=== PATIENT | female | born 1950 | race Caucasian/White ===

== ENCOUNTER 2017-03-08 18:36 | Emergency (ER) | payer OTHER ==
[~2017-03-08] VITALS: Ht 175.3 cm; Wt 63.5 kg
--- NOTE | ~2017-03-08 | EKG ---
[address] [place] [address] ELECTROCARDIOGRAM REPORT Name: MONTY ROBERTS YANICK Room [facility]: [facility] [place] [id number] Admission: 03/08/17 Attend Phys: Discharge: 03/08/17 Date of : 52 Report #: [id number] THIS REPORT FOR: //name// [facility] ED Test Date: 2017-03-08 Test Time: 18:40:52 Pat Name: MONTY ROBERTS Department: Room: Gender: F Wedding Consultant: SUHA : 1950 Requested By: Bel Phillip Order Number: [id number] MD: Rene Mcpherson Measurements Intervals [place] Rate: 66 P: 78 WI: 158 QRS: 71 QRSD: 87 T: 65 QT: 420 QTc: 441 Interpretive Statements Sinus rhythm No significant abnormality No previous ECG available for comparison Electronically Signed On 03-09-2017 8:52:25 CDT by Rene Mcpherson [email or web address] <ELECTRONICALLY SIGNED> By: Rene Mcpherson MD, [facility] 03/09/17 [id number] 1840 1840 Rene Mcpherson MD, FACC /EPI
[2017-03-08] MEDS ORDERED: LEVOTHYROXIN0.088 MG PO (18:46)
[2017-03-08] MEDS ORDERED: FOSAMAX 70 MG T70 MG PO (18:46)
[2017-03-08] MEDS ORDERED: ALDACTONE50 MG PO (18:46)
[2017-03-08] MEDS ORDERED: VITAMIN D 5050000 I1 PO (18:47)
[2017-03-08] MEDS ORDERED: BIOTIN5000 MCG PO (18:48)
[2017-03-08] MEDS ORDERED: ASPIR 8181 MG PO (18:48)
[2017-03-08] MEDS ORDERED: TUMS PO (18:48)
[2017-03-08] MEDS ORDERED: VITAMINC500 PO (18:48)
[2017-03-08] MEDS ORDERED: FISH OIL 1,001000 M2 PO (18:49)
[2017-03-08] MEDS ORDERED: SYSTANE 0.3-0.1 EACH OP (18:49)
[2017-03-08] MEDS ORDERED: MELATONIN5 M1 PO (18:49)
[2017-03-08 18:57] LABS: HEMATOCRIT 39.6 % (37.0-47.0); HEMOGLOBIN 13.6 gm/dL (12.0-15.0); MCH 33.1 pg (26.0-34.0); MCHC 34.4 g/dL (28.0-37.0); MCV 96.1 fL (80.0-100.0); PLATELET COUNT 321 thou/uL (150-400); RBC 4.12 mil/uL (4.20-5.00); RDW 13.4 % (10.5-14.5); WBC 8.4 thou/uL (4.0-11.0)
[2017-03-08 19:00] LABS: MANUAL DIFF YES
[2017-03-08 19:06] LABS: ANION GAP 7 mmol/L (7-16); BUN 25 mg/dL (7-18); CALCIUM 8.6 mg/dL (8.5-10.1); CHLORIDE 106 mmol/L (98-107); CO2 26 mmol/L (21-32); CREATININE 0.8 mg/dL (0.6-1.0); GLUCOSE 85 mg/dL (74-106); SODIUM 139 mmol/L (136-145)
[2017-03-08 19:14] LABS: TROPONIN-I < 0.04 ng/mL (<0.04-0.07)
[2017-03-08 19:27] LABS: ABSOLUTE NEUTROPHILS 4.9 thou/uL (1.4-8.2); TOTAL CELL COUNT 100
[2017-03-08 21:05] VITALS: BP 124/64
== END 2017-03-08 21:11 | disposition home or self-care (01) ==
LOC: ER 18:36
PROVIDERS: Emergency Medicine
DX: R07.9 Chest pain, unspecified (principal)